=== PATIENT | female | born 1950 | race Caucasian/White ===

== ENCOUNTER 2022-05-28 06:43 | Emergency (ER) | payer MEDICARE, BC ==
[2022-05-28 06:53] VITALS: TEMP 97.7
[2022-05-28] MEDS ORDERED: ONDANSETRON 4 MG/2 ML VIAL IVP STA (06:58)
[2022-05-28] MEDS ORDERED: SODIUM CHLORIDE 0.9% 500 ML 500 ML IV STA (06:58)
[2022-05-28] MEDS ORDERED: PANTOPRAZOLE 40 MG/10 ML VIAL IVP STA (06:58)
[2022-05-28] MEDS ORDERED: HYDROmorphone 0.5 MG/0.5 ML SYRINGE IVP STA ×3 (06:58→09:04)
--- NOTE | 2022-05-28 07:03 | ED ---
Abdominal Pain HPI - General Chief Complaint: Abdominal Pain Stated Complaint: Abd Pain Time Seen by Provider: 05/28/22 06:54 Source: patient, RN notes reviewed, old records reviewed Mode of arrival: wheelchair - History of Present Illness Initial Comments: 72-year-old female presents to the emergency room with family member complaining of right-sided abdominal pain that started yesterday around 1:00 in the afternoon. Patient states she has had multiple episodes of vomiting yesterday , approximately 10 times, initially food and then turned to bile. Denies any fevers. Did have a loose stool. Medical history of hypertension only did not take her medicine today. Denies any surgical history. Nonsmoker. MD Complaint: abdominal pain -: hour(s) (18) Location: RUQ, epigastric Severity: severe Severity scale (1-10): 8 Quality: burning Consistency: intermittent Improves With: vomiting Worsens With: other (palpatino) Associated Symptoms: nausea, vomiting - Related Data Patient : No Allergies Allergy/AdvReac Type Severity Reaction Status Date / Time No Known Allergies Allergy Verified 05/28/22 06:52 Review of Systems ROS Statement: Those systems with pertinent positive or pertinent negative responses have been documented in the HPI. ROS Other: All systems not noted in ROS Statement are negative. Past Medical History Past Medical History: Hypertension History of Any Multi-Drug Resistant Organisms: None Reported Past Surgical History: No Surgical Hx Reported Past Psychological History: No Psychological Hx Reported Smoking Status: Never smoker Past Alcohol Use History: None Reported Past Drug Use History: None Reported General Exam General appearance: alert, in no apparent distress Head exam: Present: atraumatic Eye exam: Absent: scleral icterus, conjunctival injection, periorbital swelling Respiratory exam: Present: normal lung sounds bilaterally. Absent: respiratory distress, accessory muscle use Cardiovascular Exam: Present: regular rate GI/Abdominal exam: Present: soft, tenderness (Right upper quadrant epigastric). Absent: distended, rigid Extremities exam: Present: normal capillary refill. Absent: pedal edema Neurological exam: Present: alert, oriented X3 Psychiatric exam: Present: normal affect, normal mood Skin exam: Present: warm, dry, normal color. Absent: cyanosis, diaphoretic, p allor Course Vital Signs 05/28/22 05/28/22 06:48 09:16 Temperature 97.7 F Pulse Rate 81 83 Respiratory 16 18 Rate Blood Pressure 181/76 156/69 O2 Sat by Pulse 100 96 Oximetry Medical Decision Making - Medical Decision Making Patient presents with right upper quadrant abdominal pain that started at 1:00 yesterday afternoon, intermittent throughout the night, with multiple episodes of vomiting. Denies any fevers. No previous abdominal surgeries. EKG interpreted by me shows sinus rhythm with a ventricular rate of 70, normal axis. Troponin negative Ultrasound reviewed by me shows cholelithiasis with multiple stones. Radiologist interpretation cholelithiasis, gallbladder wall 0.4 cm, with a common bile duct measuring 0.6 cm. Hepatic steatosis. Labs show leukocytosis 13.5 with an elevated bili at 2.8, amylase 650, AST 240, ALT 181, alk phos 176, Lipase 42121 Patient has been afebrile. She continuus to have abdominal cramping however pain has improved after 2 doses of Dilaudid. Admission was discussed with patient and she is requesting to have her drive her to the [facility] due to the expense of an ambulance transfer. Case discussed with Dr. Shi at [facility] who accepted transfer. Notified that whe will be driven by family. Vital signs are stable. Case discussed with Dr. Cabrales. - Lab Data Result diagrams: 05/28/22 07:04 05/28/22 07:04 Lab Results 05/28/22 05/28/22 05/28/22 Range/Units 07:04 07:04 07:04 WBC 13.5 H (3.8-10.6) k/uL RBC 5.34 (3.80-5.40) m/uL Hgb 16.8 H (11.4-16.0) gm/dL Hct 48.2 H (34.0-46.0) % MCV 90.3 (80.0-100.0) fL MCH 31.4 (25.0-35.0) pg MCHC 34.8 (31.0-37.0) g/dL RDW 12.7 (11.5-15.5) % Plt Count 214 (150-450) k/uL MPV 7.5 Neutrophils % 89 % Lymphocytes % 5 % Monocytes % 4 % Eosinophils % 0 % Basophils % 0 % Neutrophils # 12.1 H (1.3-7.7) k/uL Lymphocytes # 0.7 L (1.0-4.8) k/uL Monocytes # 0.6 (0-1.0) k/uL Eosinophils # 0.0 (0-0.7) k/uL Basophils # 0.0 (0-0.2) k/uL PT 10.4 (9.0-12.0) sec INR 1.0 (<1.2) APTT 21.6 L (22.0-30.0) sec Sodium 140 (137-145) mmol/L Potassium 3.8 (3.5-5.1) mmol/L Chloride 103 (98-107) mmol/L Carbon Dioxide 26 (22-30) mmol/L Anion Gap 11 mmol/L BUN 15 (7-17) mg/dL Creatinine 0.77 (0.52-1.04) mg/dL Est GFR (CKD-EPI)AfAm >90 (>60 ml/min/1.73 sqM) Est GFR (CKD-EPI)NonAf 78 (>60 ml/min/1.73 sqM) Glucose 190 H (74-99) mg/dL Plasma Lactic Acid Daren (0.7-2.0) mmol/L Calcium 8.8 (8.4-10.2) mg/dL Total Bilirubin 2.8 H (0.2-1.3) mg/dL AST 240 H (14-36) U/L ALT 181 H (4-34) U/L Alkaline Phosphatase 176 H (38-126) U/L Troponin I (0.000-0.034) ng/mL Total Protein 7.0 (6.3-8.2) g/dL Albumin 4.5 (3.5-5.0) g/dL Amylase 650 H* (30-110) U/L Lipase 65478 H (23-300) U/L 05/28/22 05/28/22 Range/Units 07:04 07:04 WBC (3.8-10.6) k/uL RBC (3.80-5.40) m/uL Hgb (11.4-16.0) gm/dL Hct (34.0-46.0) % MCV (80.0-100.0) fL MCH (25.0-35.0) pg MCHC (31.0-37.0) g/dL RDW (11.5-15.5) % Plt Count (150-450) k/uL MPV Neutrophils % % Lymphocytes % % Monocytes % % Eosinophils % % Basophils % % Neutrophils # (1.3-7.7) k/uL Lymphocytes # (1.0-4.8) k/uL Monocytes # (0-1.0) k/uL Eosinophils # (0-0.7) k/uL Basophils # (0-0.2) k/uL PT (9.0-12.0) sec INR (<1.2) APTT (22.0-30.0) sec Sodium (137-145) mmol/L Potassium (3.5-5.1) mmol/L Chloride (98-107) mmol/L Carbon Dioxide (22-30) mmol/L Anion Gap mmol/L BUN (7-17) mg/dL Creatinine (0.52-1.04) mg/dL Est GFR (CKD-EPI)AfAm (>60 ml/min/1.73 sqM) Est GFR (CKD-EPI)NonAf (>60 ml/min/1.73 sqM) Glucose (74-99) mg/dL Plasma Lactic Acid Daren 1.4 (0.7-2.0) mmol/L Calcium (8.4-10.2) mg/dL Total Bilirubin (0.2-1.3) mg/dL AST (14-36) U/L ALT (4-34) U/L Alkaline Phosphatase (38-126) U/L Troponin I <0.012 (0.000-0.034) ng/mL Total Protein (6.3-8.2) g/dL Albumin (3.5-5.0) g/dL Amylase (30-110) U/L Lipase (23-300) U/L - EKG Data EKG shows normal: sinus rhythm (Ventricular rate 70, TN interval 0.124, QRS 0.106, QTC 0.456; normal axis ; T-wave inversions V5 V6) When compared to previous EKG there are: previous EKG unavailable Disposition Clinical Impression: Choledocholithiasis, Pancreatitis Disposition: ADMITTED IP TO THIS HOSP Condition: Fair Is patient prescribed a controlled substance at d/c from ED?: No Referrals: None,Stated [REFERRING] - 1-2 days Decision Date: 05/28/22 Decision Time: 09:39 - Out of Hospital Transfer - Req. Specs Out of Hospital Transfer - Requested Specifics: Other Emergency Center ([facility])
[2022-05-28] MEDS ORDERED: SODIUM CHLORIDE 0.9% 1,000 ML IV SCH (07:45)
[2022-05-28 08:03] LABS: ALT 181 U/L (4-34); AST 240 U/L (14-36); African American GFR (CKD) >90 (>60 ml/min/1.73 sqM); Albumin 4.5 g/dL (3.5-5.0); Alkaline Phosphatase 176 U/L (38-126); Anion Gap 11 mmol/L; Blood Urea Nitrogen 15 mg/dL (7-17); Calcium 8.8 mg/dL (8.4-10.2); Carbon Dioxide 26 mmol/L (22-30); Chloride 103 mmol/L (98-107); Glucose 190 mg/dL (74-99); Non-African American GFR(CKD) 78 (>60 ml/min/1.73 sqM); Potassium 3.8 mmol/L (3.5-5.1); Prothrombin Time 10.4 sec (9.0-12.0); Sodium 140 mmol/L (137-145); Total Bilirubin 2.8 mg/dL (0.2-1.3)
[2022-05-28 08:09] LABS: Amylase 650 U/L (30-110)
[2022-05-28 08:42] LABS: Basophils % (A) 0 %; Eosinophils % (A) 0 %; HCT 48.2 % (34.0-46.0); HGB 16.8 gm/dL (11.4-16.0); Lymphocytes # (A) 0.7 k/uL (1.0-4.8); Lymphocytes % (A) 5 %; MCH 31.4 pg (25.0-35.0); MCHC 34.8 g/dL (31.0-37.0); MCV 90.3 fL (80.0-100.0); Mean Platelet Volume 7.5; Monocytes # (A) 0.6 k/uL (0-1.0); Monocytes % (A) 4 %; Neutrophils # (A) 12.1 k/uL (1.3-7.7); Neutrophils % (A) 89 %; Platelet Count 214 k/uL (150-450); RBC 5.34 m/uL (3.80-5.40); RDW 12.7 % (11.5-15.5); WBC 13.5 k/uL (3.8-10.6)
[2022-05-28 08:53] LABS: Partial Thromboplastin Time 21.6 sec (22.0-30.0)
--- NOTE | 2022-05-28 08:56 | US ---
EXAMINATION TYPE: US gallbladder DATE OF EXAM: 05/28/2022 COMPARISON: NONE CLINICAL HISTORY: RUQ epigastric pain. RUQ pain. Nausea and vomiting TECHNIQUE: Multiple sonographic images of the right upper quadrant are obtained. FINDINGS: EXAM MEASUREMENTS: Liver Length: 14.4 cm Gallbladder Wall: 0.4 cm CBD: 0.6 cm Right Kidney: 9.0 x 4.5 x 4.3 cm CASER UP NOTES:technical limitations due to large amount of overlying bowel content Pancreas: duct = 0.3cm Liver: appears heterogeneous Gallbladder: multiple stones, thickened wall Evidence for sonographic Garber's sign: yes CBD: upper limits of normal Right Kidney: no evidence of hydronephrosis IMPRESSION: 1. Hepatocellular disease commonly related to hepatic steatosis. 2. Cholelithiasis.
[2022-05-28 09:17] VITALS: RESP 18
[2022-05-28 09:33] LABS: Lipase 12362 U/L (23-300)
[2022-05-28] MEDS ORDERED: amLODIPine 10 MG TAB PO STA (09:46)
[2022-05-28 16:43] VITALS: BP 145/81; PULSE 84
== END 2022-05-28 10:30 | disposition other institution (70) ==
LOC: EC 06:43
DX: K80.50 Calculus of bile duct without cholangitis or cholecystitis without obstruction (principal); K85.90 Acute pancreatitis without necrosis or infection, unspecified; I10 Essential (primary) hypertension; K76.0 Fatty (change of) liver, not elsewhere classified
CPT/HCPCS: 99285; 96374; 96375; 96376; 96361; 36415; 93005; 80053; 82150; 83605; 83690; 84484; 85025; 85610; 85730; 76705; J2405; C9113; J1170